=== PATIENT | male | born 1955 | race Caucasian/White ===

== ENCOUNTER 2024-04-14 09:46 | Emergency (ER) | payer OTHER, SELFPAY ==
[2024-04-14 10:22] VITALS: BP 118/80; PULSE 98; RESP 18; TEMP 36.6; O2SAT 96; BMI 26.4
[2024-04-14 10:48] LABS: Basophils # (Auto) 0.1 Thou/mm3 (0.0-0.2); Basophils % (Auto) 0 % (0-2.5); Eosinophils # (Auto) 0.1 Thou/mm3 (0.0-0.5); Eosinophils % (Auto) 0 % (0-10); Hematocrit 44.8 % (41.0-53.0); Hemoglobin 15.5 g/dL (13.5-16.0); Immature Granulocytes % (Auto) 0 % (0-0); Immature Granulocytes Auto 0.05 Thou/mm3 (0.00-0.00); Lymphocytes # (Auto) 2.5 Thou/mm3 (1.0-4.8); Lymphocytes % (Auto) 16 % (10-50); Mean Corpuscular HGB Conc 34.6 g/dl (31.0-37.0); Mean Corpuscular Hemoglobin 32.4 pg (25.0-35.0); Mean Corpuscular Volume 94 fL (80-100); Monocytes # (Auto) 1.2 Thou/mm3 (0.0-0.8); Monocytes % (Auto) 7 % (0-12); Neutrophils # (Auto) 12.5 Thou/mm3 (1.8-7.7); Neutrophils % (Auto) 76 % (37-80); Nucleated Red Blood Cell % 0 /100 WBC (0); Platelet Count 231 Thou/mm3 (140-440); RDW Standard Deviation 44.9 fL (35.1-43.9); Red Blood Count 4.79 Miln/mm3 (4.50-5.90); White Blood Count 16.4 Thou/mm3 (3.8-10.6)
[2024-04-14 11:03] LABS: Alanine Aminotransferase 19 U/L (10-49); Albumin, Serum 5.1 gm/dL (3.4-4.8); Albumin/Globulin Ratio 1.8 (1.2-2.2); Alkaline Phosphatase 97 U/L (46-116); Anion Gap 6 (7-16); Aspartate Amino Transferase 24 U/L (0-34); BUN/Creatinine Ratio 8 Ratio (12-20); Bilirubin,Total 1.1 mg/dL (0.3-1.2); Blood Urea Nitrogen 15 mg/dL (9-23); Calcium 9.8 mg/dL (8.3-10.6); Calcium (Corrected) 9.8 mg/dL (8.5-10.1); Carbon Dioxide 25.8 mMol/L (20.0-31.0); Chloride 107 mMol/L (98-107); Creatinine (Component) 1.8 mg/dL (0.6-1.3); Estimated Creatinine Clearance 38.5 mL/min (>60); Globulin 2.9 gm/dL (2.3-3.5); Glucose 111 mg/dL (74-106); Lipase 29 U/L (12-53); Osmolality,Calculated 279 (275-295); Sodium 139 mMol/L (136-145); eGFR 41 See Note
--- NOTE | 2024-04-14 11:03 | PD.EDRME ---
Rapid Medical Screening Exam RME Arrival date/time: 04/14/24 09:46 This 68-year-old male presents to the emergency department with complaints of right mid flank pain that began 3 days ago associated with nausea. I have greeted and performed a focused initial assessment of this patient. Initial appropriate labs ordered at this time. A comprehensive ED assessment and evaluation of the patient and analysis of all test and completion of medical decision making process will be conducted by additional ED provider. Chief Complaint: Urogenital-Male Time Seen by Provider: 04/14/24 10:15 Vital signs: Vital Signs Temperature 97.8 F 04/14/24 10:22 Pulse Rate 98 04/14/24 10:22 Respiratory Rate 18 04/14/24 10:22 Blood Pressure 118/80 04/14/24 10:22 Pulse Oximetry (%) 96 04/14/24 10:22 Oxygen Delivery Method Room Air 04/14/24 10:22
[2024-04-14 11:40] LABS: Collection Type, Urine Clean Catch; Squamous Epithelial Cell,Urine 0 /hpf (0-5); WBC,Urine 0 /hpf (0-5)
[2024-04-14 12:18] LABS: Amorphous Crystals,Urine Present (Absent); Bilirubin,Urine Negative (Negative); Blood,Urine Negative (Negative); Color,Urine Yellow (Lt Yel-Yel); Glucose, Urine Negative (Negative); Ketones,Urine Negative (Negative); Leukocyte Esterase,Urine Negative (Negative); Nitrite,Urine Negative (Negative); Protein,Urine 2+ (Neg - Trace); RBC,Urine 4 /hpf (0-3)
[2024-04-14 12:19] LABS: Clarity,Urine Turbid (Clear/Hazy)
[2024-04-14 13:15] VITALS: BP 153/89; PULSE 67; RESP 18; TEMP 36.5; O2SAT 98
--- NOTE | 2024-04-14 13:21 | XR_ITS ---
Examination: CT abdomen and pelvis without contrast. Coronal 3-D reconstructions. Sagittal 2-D reconstructions. Date and time of exam:April 14, 2024 1417 hrs. Indications: Right flank pain beginning 3 days ago, history appendectomy CTDI: vol (mGy): 7.54 DLP: (mGycm): 421 Technique: Axial images of the abdomen have been obtained, 3 mm slice thickness Intravenous contrast material has not been administered. Low dose protocols were performed. One or more of the following dose reduction techniques were used; automated exposure control, adjustment of the mA and/or KV according to patient size, use of iterative reconstruction technique. Findings: No focal liver lesions Multiple splenic calcifications Cholelithiasis negative for cholecystitis No pancreatic mass Normal adrenal glands Mild right hydronephrosis secondary to 8 mm proximal right ureteral calculus Heavy abdominal aortic calcification Appendix not visualized No bowel obstruction Mild prostatomegaly No bladder mass Moderate osteopenia Impression: Mild right hydronephrosis secondary to 8 mm proximal right ureteral calculus
--- NOTE | 2024-04-14 13:23 | PD.EDADULT ---
ED General RME/HPI General Chief complaint: Urogenital-Male Stated complaint: right kidney spasms x3 days Time Seen by Provider: 04/14/24 10:15 Arrival date/time: 04/14/24 09:46 CC: Right flank pain HPI abrupt onset 3 days ago progressive increase in severity with pain radiating to the right groin no prior history of similar events denies painful urination or bloody urination. Patient is in obvious discomfort rating his pain on a 9 to a 10 scale. No active vomiting. Patient states he is no longer nauseated after throwing up . 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 RME / HPI RME / HPI narrative: 04/14/24 09:46 This 68-year-old male presents to the emergency department with complaints of right mid flank pain that began 3 days ago associated with nausea. I have greeted and performed a focused initial assessment of this patient. Initial appropriate labs ordered at this time. A comprehensive ED assessment and evaluation of the patient and analysis of all test and completion of medical decision making process will be conducted by additional ED provider. Related Data Previous Rx's ?Medication ?Instructions ?Recorded ketorolac 10 mg tablet 10 mg PO Q8H #7 tabs 04/14/24 ondansetron 4 mg disintegrating 4 mg PO Q8H #10 tabs 04/14/24 tablet Allergies Allergy/AdvReac Type Severity Reaction Status Date / Time No Known Allergies Allergy Verified 04/15/24 11:20 Review of Systems Review of Systems Narrative Review of Systems: GEN: No fever, no chills, no weight loss EYES: No discharge, no visual changes, no pain HEENT: No ear pain, no congestion, no sore throat PULM: No shortness of breath, no cough, no congestion CV: No chest pain, no dyspnea on exertion, no palpitations GI: No nausea, no vomiting, no diarrhea, no pain, no constipation : No frequency, no urgency, no dysuria MUSC/SKEL: No joint pain, +flank pain SKIN: No rash PSYCH: No hallucinations, no depression HEME/LYMPH: No easy bleeding or bruising tendencies NEURO: No weakness, no headache Past Medical History Social History SMOKING STATUS: Current every day smoker ED Exam Narrative Physical exam: [General: Moderate discomfort not in any acute distress Head normocephalic HEENT: Within acceptable limits Neck is supple nontender Chest equal chest rise nontender to palpation Respiratory: Clear to auscultation no wheezes crackles or rubs CV: Rate rhythm is regular no murmurs rubs or clicks Abdomen is soft nontender no masses positive bowel sounds all 4 quadrants Back: Right CVA tenderness no left CVA tenderness, no spinous process tenderness from cervical spine thoracic and lumbar spine Skin: Intact no petechiae rash induration ulceration or crepitus Extremities: Moving all extremity against resistance cap refill less than 2 seconds neurosensory intact Neuro: Awake alert oriented x3 Glascow coma 15 no focal deficits] Course Course Course Narrative: Patient has an 8 mm stone with mild hydro, patient's case discussed with Dr. Broderick states patient be discharged home consider returning tomorrow for nephrostomy tube Quality Measures none Orders Category Date Time Status Saline [Insert IV] NOW Care 04/14/24 13:[address] abdomen pelvis wo con Stat Exams 04/14/24 13:21 Completed CBC Stat Lab 04/14/24 10:37 Completed CMP [Comprehensive Metabolic Panel] Stat Lab 04/14/24 10:37 Completed Lipase Stat Lab 04/14/24 10:37 Completed Urinalysis Stat Lab 04/14/24 11:17 Completed Ketorolac Inj [Toradol Inj] Med 04/14/24 13:21 Discontinued 30 mg IVP X1 ONE Morphine Inj Med 04/14/24 16:01 Discontinued 4 mg IVP X1 ONE Ondansetron Inj [Zofran Inj] Med 04/14/24 13:21 Discontinued 4 mg IV X1 ONE Ondansetron Inj [Zofran Inj] Med 04/14/24 16:01 Discontinued 4 mg IV X1 ONE Vital Signs Vital signs: Vital Signs Temperature 97.8 F 04/14/24 10:22 Pulse Rate 98 04/14/24 10:22 Respiratory Rate 18 04/14/24 10:22 Blood Pressure 118/80 04/14/24 10:22 Pulse Oximetry (%) 96 04/14/24 10:22 Oxygen Delivery Method Room Air 04/14/24 10:22 [facility] Patient data External records reviewed:: [facility] previous records Clinical information provided by:: patient Social determinants that could affect healthcare access:: none Patient has the following chronic illnesses:: History of MIs How is presenting disease/condition affected by chronic disease/condition?: uneffected by Evaluation data The following diagnostics were reviewed and interpreted by me:: lab results and radiology exam(s) Lab and/or radiology exams considered but not ordered:: CBC shows leukocytosis of 16.4 no anemia thrombocytopenia CMP shows a creatinine of 1.8 glucose of 111 no other electrolyte imbalances renal impairment transaminitis or T. bili elevation. UA is turbid with 4+ RBCs no bacteria. Interpretation Summary: None Medications Medications considered but not ordered:: None Medication administrations:: Medication Administration History Discontinued Medications Ketorolac Tromethamine (Ketorolac Inj 30 Mg/Ml Vial) 30 mg IVP X1 ONE Stop: 04/14/24 13:22 Last Admin: 04/14/24 13:45 Dose: 30 mg Documented By: RD Morphine Sulfate (Morphine Sulf Inj 10 Mg/Ml Vial) 4 mg IVP X1 ONE Stop: 04/14/24 16:02 Last Admin: 04/14/24 16:17 Dose: 4 mg Documented By: JESUS Ondansetron HCl (Ondansetron Inj 2 Mg/Ml Inj 2 Ml) 4 mg IV X1 ONE; Protocol Stop: 04/14/24 13:22 Last Admin: 04/14/24 13:45 Dose: 4 mg Documented By: JESUS Ondansetron HCl (Ondansetron Inj 2 Mg/Ml Inj 2 Ml) 4 mg IV X1 ONE; Protocol Stop: 04/14/24 16:02 Last Admin: 04/14/24 16:17 Dose: 4 mg Documented By: JESUS None Consultations Consultation(s) initiated? (list below): No Diagnosis Differential Diagnosis ED Complaint MDM: Urolithiasis hydroureter hydronephrosis Most likely diagnosis given after review of the tests above:: Urolithiasis hydroureter hydronephrosis Admission Indicated Admission indicated?: not indicated Explain why admission is indicated or not indicated:: Needs to return tomorrow for follow-up Admission Request Was there a request for admission?: No Disposition Plan Disposition Plan: Discharge Discharge Attestation Discharge Attestation: The patient and all family members were given an opportunity to ask questions and understood the discharge instructions. Discharge instructions specifically effects, indications for sooner follow up or return to the emergency department, and the expected course of current diagnosis. Patient condition: Stable Medical Decision Making Differential Diagnosis Differential Diagnosis: Urolithiasis hydroureter hydronephrosis Lab Data 04/14/24 10:37 04/14/24 10:37 Labs: Lab Results 04/14/24 04/14/24 Range/Units 10:37 11:17 WBC 16.4 H (3.8-10.6) Thou/mm3 RBC 4.79 (4.50-5.90) Miln/mm3 Hgb 15.5 (13.5-16.0) g/dL Hct 44.8 (41.0-53.0) % MCV 94 (80-100) fL MCH 32.4 (25.0-35.0) pg MCHC 34.6 (31.0-37.0) g/dl RDW Std Deviation 44.9 H (35.1-43.9) fL Plt Count 231 (140-440) Thou/mm3 Neut % (Auto) 76 (37-80) % Lymph % (Auto) 16 (10-50) % [place] % (Auto) 7 (0-12) % Eos % (Auto) 0 (0-10) % Baso % (Auto) 0 (0-2.5) % Neut # (Auto) 12.5 H (1.8-7.7) Thou/mm3 Lymph # (Auto) 2.5 (1.0-4.8) Thou/mm3 [place] # (Auto) 1.2 H (0.0-0.8) Thou/mm3 Eos # (Auto) 0.1 (0.0-0.5) Thou/mm3 Baso # (Auto) 0.1 (0.0-0.2) Thou/mm3 Immature Gran # (Auto) 0.05 H (0.00-0.00) Thou/mm3 Absolute Nucleated RBC 0.00 (0.00-0.00) Thou/mm3 Immature Gran % 0 (0-0) % Nucleated RBC % 0 (0) /100 WBC Sodium 139 (136-145) mMol/L Potassium 4.0 (3.4-5.1) mMol/L Chloride 107 (98-107) mMol/L Carbon Dioxide 25.8 (20.0-31.0) mMol/L Anion Gap 6 L (7-16) BUN 15 (9-23) mg/dL Creatinine 1.8 H (0.6-1.3) mg/dL Estim Creat Clear Calc 38.5 L (>60) mL/min eGFR 41 L (60 - ) See Note BUN/Creatinine Ratio 8 L (12-20) Ratio Glucose 111 H (74-106) mg/dL Calculated Osmolality 279 (275-295) Calcium 9.8 (8.3-10.6) mg/dL Corrected Calcium 9.8 (8.5-10.1) mg/dL Total Bilirubin 1.1 (0.3-1.2) mg/dL AST 24 (0-34) U/L ALT 19 (10-49) U/L Alkaline Phosphatase 97 (46-116) U/L Total Protein 8.0 (5.7-8.2) gm/dL Albumin 5.1 H (3.4-4.8) gm/dL Globulin 2.9 (2.3-3.5) gm/dL Albumin/Globulin Ratio 1.8 (1.2-2.2) Lipase 29 (12-53) U/L Ur Collection Type Clean Catch Urine Color Yellow (Lt Yel-Yel) Urine Clarity Turbid A (Clear/Hazy) Urine pH 6.0 (5.0-7.0) Ur Specific [place] 1.040 H (1.001-1.035) Urine Protein 2+ A (Neg - Trace) Urine Glucose (UA) Negative (Negative) Urine Ketones Negative (Negative) Urine Blood Negative (Negative) Urine Nitrite Negative (Negative) Urine Bilirubin Negative (Negative) Urine Urobilinogen (Auto) 2.0 (0.0-1.0) mg/dL Ur Leukocyte Esterase Negative (Negative) Urine RBC 4 H (0-3) /hpf Urine WBC 0 (0-5) /hpf Ur Squamous Epith Cells 0 (0-5) /hpf Amorphous Crystals Present A (Absent) Urine Bacteria None (None) Discharge Plan Plan Patient Disposition: HOME (Self Care) Patient condition on transfer: Stable Prescriptions/Referrals Prescriptions/Med Rec: New ketorolac 10 mg tablet 10 mg PO Q8H Qty: 7 0RF Rx Instructions: maximum total duration of 5 days from all oral, intranasal, or parenteral formulations ondansetron 4 mg tablet,disintegrating 4 mg PO Q8H Qty: 10 0RF Referrals: Wilma Bone MD [Physician] - In 1 week Chava Meléndez MD [Primary Care Provider] - In 1 week Problem List Clinical Impression: Urolithiasis, Hydronephrosis, Hydroureter Patient/Caregiver Discharge Instructions Education Materials: ED Kidney Stone w/ Colic Print Language: Kosovan Stand Alone Forms: Madison Award Info., Work/School Release, Patient Portal Info Letter MD Attestation MD Attestation The patient was seen by the midlevel practitioner. I, the co-signing physician, was present during the entire ER visit. While I did not physically examine the patient, I was available for consultation as needed.
[2024-04-14] MEDS: KETOROLAC INJ 30 MG/ML VIAL IVP (13:45)
[2024-04-14] MEDS: ONDANSETRON INJ 2 MG/ML INJ 2 ML 4 MG IV ×2 (13:45→16:17)
[2024-04-14 15:36] VITALS: BP 125/79; PULSE 63; RESP 18; TEMP 36.3; O2SAT 98
[2024-04-14] MEDS: MORPHINE SULF INJ 10 MG/ML VIAL 4 MG IVP (16:17)
[2024-04-14 17:28] VITALS: BP 102/67; PULSE 73; RESP 18; TEMP 36.6; O2SAT 97
== END 2024-04-14 17:38 | disposition home or self-care (01) ==
PROVIDERS: Nurse Practitioner Primary Care; Emergency Provider Emergency Medicine; PCP Family Medicine
DX: N13.2 Hydronephrosis with renal and ureteral calculous obstruction (principal)
CPT/HCPCS: 36415; 74176; 80053; 81001; 83690; 85025; 96374; 96375; 96376; 99284; J1885; J2270; J2405

== ENCOUNTER 2024-04-15 11:19 | Emergency (ER) | payer OTHER, SELFPAY ==
[2024-04-15 11:42] VITALS: BP 123/76; PULSE 95; RESP 18; TEMP 36.8; O2SAT 96; BMI 25.2
--- NOTE | 2024-04-15 11:56 | PD.EDADULT ---
ED General RME/HPI General Chief complaint: Urogenital-Male Stated complaint: FOLLOW UP FOR KIDNEY STONE Time Seen by Provider: 04/15/24 11:21 Arrival date/time: 04/15/24 11:19 CC: Right flank pain patient is return today as requested regarding an 8 mm proximal stone in the right ureter. The patient states his brain pain has been essentially relieved with the medication given yesterday patient states he walked a mile did not orange picker the medications prescribed and has a follow-up appointment via teleconference with his [place] primary care doctor in 1 week. Patient is afebrile nontoxic-appearing not in any acute distress. Related Data Previous Rx's ?Medication ?Instructions ?Recorded ketorolac 10 mg tablet 10 mg PO Q8H #7 tabs 04/14/24 ondansetron 4 mg disintegrating 4 mg PO Q8H #10 tabs 04/14/24 tablet Allergies Allergy/AdvReac Type Severity Reaction Status Date / Time No Known Allergies Allergy Verified 04/15/24 11:20 Review of Systems Review of Systems Narrative Review of Systems: GEN: No fever, no chills, no weight loss EYES: No discharge, no visual changes, no pain HEENT: No ear pain, no congestion, no sore throat PULM: No shortness of breath, no cough, no congestion CV: No chest pain, no dyspnea on exertion, no palpitations GI: No nausea, no vomiting, no diarrhea, no pain, no constipation : No frequency, no urgency, no dysuria MUSC/SKEL: No joint pain, no back pain SKIN: No rash PSYCH: No hallucinations, no depression HEME/LYMPH: No easy bleeding or bruising tendencies NEURO: No weakness, no headache Past Medical History Past Medical History CARDIAC: Positive Myocardial Infarction (x2); Negative Congestive Heart Failure RESPIRATORY: Negative Chronic Obstructive Pulmonary Disease (COPD) GENITOURINARY: Negative Renal Disease ENDOCRINE: Negative Diabetes Mellitus Type 1 or Diabetes Mellitus Type 2 Surgical History SURGICAL: Positive Abdominal Surgery Social History SMOKING STATUS: Never smoker ED Exam Narrative Physical exam: [General: Thin but not emaciated not in any acute distress Head normocephalic HEENT: Within acceptable limits Neck is supple nontender Chest equal chest rise nontender to palpation Respiratory: Clear to auscultation no wheezes crackles or rubs CV: Rate rhythm is regular no murmurs rubs or clicks Abdomen is soft nontender no masses positive bowel sounds all 4 quadrants Back: Right CVA tenderness, no left CVA tenderness, no spinous process tenderness from cervical spine thoracic and lumbar spine Skin: Intact no petechiae rash induration ulceration or crepitus Extremities: Moving all extremity against resistance cap refill less than 2 seconds neurosensory intact Neuro: Awake alert oriented x3 Glascow coma 15 no focal deficits] Course Quality Measures none Orders Category Date Time Status CBC Stat Lab 04/15/24 12:11 Completed CMP [Comprehensive Metabolic Panel] Stat Lab 04/15/24 12:11 Completed Vital Signs Vital signs: Vital Signs Temperature 98.3 F 04/15/24 11:42 Pulse Rate 95 04/15/24 11:42 Respiratory Rate 18 04/15/24 11:42 Blood Pressure 123/76 04/15/24 11:42 Pulse Oximetry (%) 96 04/15/24 11:42 Oxygen Delivery Method Room Air 04/15/24 11:[address] [facility] Patient data External records reviewed:: [facility] previous records Clinical information provided by:: patient Social determinants that could affect healthcare access:: none Patient has the following chronic illnesses:: Newly diagnosed urolithiasis 8 mm proximal right ureter with mild hydro nephrosis and hydroureter How is presenting disease/condition affected by chronic disease/condition?: exacerbated by Evaluation data The following diagnostics were reviewed and interpreted by me:: lab results Lab and/or radiology exams considered but not ordered:: CBC shows a leukocytosis of 14.9 this is a decrease from yesterday, creatinine is unchanged at 1.8 all other labs are unremarkable Interpretation Summary: This patient can be discharged home with a follow-up with the [place] regarding his urolithiasis with hydroureter and hydronephrosis. Patient advised if there is worsening of symptoms he can return the emergency room medially for further evaluation. Medications Medications considered but not ordered:: None Medication administrations:: None Consultations Consultation(s) initiated? (list below): No Diagnosis Differential Diagnosis ED Complaint MDM: Urolithiasis hydroureter hydronephrosis Most likely diagnosis given after review of the tests above:: Urolithiasis Admission Indicated Admission indicated?: not indicated Explain why admission is indicated or not indicated:: Stable for close outpatient follow-up patient states he has not appointment with the [place], Admission Request Was there a request for admission?: No Disposition Plan Disposition Plan: Discharge Discharge Attestation Discharge Attestation: The patient and all family members were given an opportunity to ask questions and understood the discharge instructions. Discharge instructions specifically effects, indications for sooner follow up or return to the emergency department, and the expected course of current diagnosis. Patient condition: Stable Medical Decision Making Differential Diagnosis Differential Diagnosis: Urolithiasis hydroureter hydronephrosis Lab Data 04/15/24 12:11 04/15/24 12:11 Labs: Lab Results 04/15/24 Range/Units 12:11 WBC 14.9 H (3.8-10.6) Thou/mm3 RBC 4.56 (4.50-5.90) Miln/mm3 Hgb 14.7 (13.5-16.0) g/dL Hct 43.3 (41.0-53.0) % MCV 95 (80-100) fL MCH 32.2 (25.0-35.0) pg MCHC 33.9 (31.0-37.0) g/dl RDW Std Deviation 45.9 H (35.1-43.9) fL Plt Count 217 (140-440) Thou/mm3 Neut % (Auto) 74 (37-80) % Lymph % (Auto) 16 (10-50) % [place] % (Auto) 8 (0-12) % Eos % (Auto) 1 (0-10) % Baso % (Auto) 1 (0-2.5) % Neut # (Auto) 11.0 H (1.8-7.7) Thou/mm3 Lymph # (Auto) 2.4 (1.0-4.8) Thou/mm3 [place] # (Auto) 1.2 H (0.0-0.8) Thou/mm3 Eos # (Auto) 0.2 (0.0-0.5) Thou/mm3 Baso # (Auto) 0.1 (0.0-0.2) Thou/mm3 Immature Gran # (Auto) 0.04 H (0.00-0.00) Thou/mm3 Absolute Nucleated RBC 0.00 (0.00-0.00) Thou/mm3 Immature Gran % 0 (0-0) % Nucleated RBC % 0 (0) /100 WBC Sodium 140 (136-145) mMol/L Potassium 4.2 (3.4-5.1) mMol/L Chloride 106 (98-107) mMol/L Carbon Dioxide 28.1 (20.0-31.0) mMol/L Anion Gap 6 L (7-16) BUN 20 (9-23) mg/dL Creatinine 1.8 H (0.6-1.3) mg/dL Estim Creat Clear Calc 38.5 L (>60) mL/min eGFR 41 L (60 - ) See Note BUN/Creatinine Ratio 11 L (12-20) Ratio Glucose 104 (74-106) mg/dL Calculated Osmolality 282 (275-295) Calcium 9.7 (8.3-10.6) mg/dL Corrected Calcium 9.7 (8.5-10.1) mg/dL Total Bilirubin 1.2 (0.3-1.2) mg/dL AST 22 (0-34) U/L ALT 18 (10-49) U/L Alkaline Phosphatase 91 (46-116) U/L Total Protein 7.8 (5.7-8.2) gm/dL Albumin 4.8 (3.4-4.8) gm/dL Globulin 3.0 (2.3-3.5) gm/dL Albumin/Globulin Ratio 1.6 (1.2-2.2) Discharge Plan Plan Patient Disposition: HOME (Self Care) Patient condition on transfer: Stable Prescriptions/Referrals Prescriptions/Med Rec: No Action ketorolac 10 mg tablet 10 mg PO Q8H Qty: 7 0RF Rx Instructions: maximum total duration of 5 days from all oral, intranasal, or parenteral formulations ondansetron 4 mg tablet,disintegrating 4 mg PO Q8H Qty: 10 0RF Referrals: Chava Meléndez MD [Primary Care Provider] - In 1 week Problem List Clinical Impression: Urolithiasis, Hydronephrosis, Hydroureter Patient/Caregiver Discharge Instructions Other Activity Instructions:: Take the medications that were prescribed yesterday if there is a worsening of symptoms in spite of the medications return the emergency room immediately for further evaluation. Education Materials: ED Kidney Stone Undescended No ... Print Language: Frisian Stand Alone Forms: [employer] Award Info., Work/School Release, Patient Portal Info Letter Attestation Attestation The patient was seen by the midlevel practitioner. I, the co-signing physician, was present during the entire ER visit. While I did not physically examine the patient, I was available for consultation as needed.
[2024-04-15 12:46] LABS: Basophils # (Auto) 0.1 Thou/mm3 (0.0-0.2); Basophils % (Auto) 1 % (0-2.5); Eosinophils # (Auto) 0.2 Thou/mm3 (0.0-0.5); Eosinophils % (Auto) 1 % (0-10); Hematocrit 43.3 % (41.0-53.0); Hemoglobin 14.7 g/dL (13.5-16.0); Immature Granulocytes % (Auto) 0 % (0-0); Immature Granulocytes Auto 0.04 Thou/mm3 (0.00-0.00); Lymphocytes # (Auto) 2.4 Thou/mm3 (1.0-4.8); Lymphocytes % (Auto) 16 % (10-50); Mean Corpuscular HGB Conc 33.9 g/dl (31.0-37.0); Mean Corpuscular Hemoglobin 32.2 pg (25.0-35.0); Mean Corpuscular Volume 95 fL (80-100); Monocytes # (Auto) 1.2 Thou/mm3 (0.0-0.8); Monocytes % (Auto) 8 % (0-12); Neutrophils % (Auto) 74 % (37-80); Nucleated Red Blood Cell % 0 /100 WBC (0); Platelet Count 217 Thou/mm3 (140-440); RDW Standard Deviation 45.9 fL (35.1-43.9); Red Blood Count 4.56 Miln/mm3 (4.50-5.90); White Blood Count 14.9 Thou/mm3 (3.8-10.6)
[2024-04-15 13:07] LABS: Alanine Aminotransferase 18 U/L (10-49); Albumin, Serum 4.8 gm/dL (3.4-4.8); Albumin/Globulin Ratio 1.6 (1.2-2.2); Alkaline Phosphatase 91 U/L (46-116); Anion Gap 6 (7-16); Aspartate Amino Transferase 22 U/L (0-34); BUN/Creatinine Ratio 11 Ratio (12-20); Bilirubin,Total 1.2 mg/dL (0.3-1.2); Blood Urea Nitrogen 20 mg/dL (9-23); Calcium 9.7 mg/dL (8.3-10.6); Calcium (Corrected) 9.7 mg/dL (8.5-10.1); Carbon Dioxide 28.1 mMol/L (20.0-31.0); Chloride 106 mMol/L (98-107); Creatinine (Component) 1.8 mg/dL (0.6-1.3); Estimated Creatinine Clearance 38.5 mL/min (>60); Glucose 104 mg/dL (74-106); Osmolality,Calculated 282 (275-295); Potassium 4.2 mMol/L (3.4-5.1); Sodium 140 mMol/L (136-145); Total Protein 7.8 gm/dL (5.7-8.2); eGFR 41 See Note
== END 2024-04-15 14:06 | disposition home or self-care (01) ==
PROVIDERS: Registered Nurse General Practice; Emergency Provider Emergency Medicine; PCP Family Medicine
DX: N13.2 Hydronephrosis with renal and ureteral calculous obstruction (principal)
CPT/HCPCS: 36415; 80053; 85025; 99283

== ENCOUNTER → 2024-06-03 | Outpatient (BNVA) | payer OTHER, SELFPAY | END | disposition home or self-care (01) | PROVIDERS: PCP Family Medicine; Referring Provider Family Medicine; Visit Provider Urology | DX: N40.1 Benign prostatic hyperplasia with lower urinary tract symptoms (principal); N13.8 Other obstructive and reflux uropathy; N13.2 Hydronephrosis with renal and ureteral calculous obstruction; N18.30 Chronic kidney disease, stage 3 unspecified; I25.10 Atherosclerotic heart disease of native coronary artery without angina pectoris; I25.2 Old myocardial infarction | CPT/HCPCS: 81003; 99212; G0463 ==

== ENCOUNTER → 2024-06-03 | Outpatient (CLI) | payer OTHER, SELFPAY ==
[2024-06-03 12:40] LABS: Prostate Specific Antigen 2.98 ng/mL (0-4.00)
== END | disposition home or self-care (01) ==
LOC: COPL 11:22
PROVIDERS: PCP Family Medicine; Referring Provider Family Medicine; Visit Provider Family Medicine
DX: N40.1 Benign prostatic hyperplasia with lower urinary tract symptoms (principal)
CPT/HCPCS: 36415; 84153

== ENCOUNTER 2024-06-26 06:15 | Day surgery (SDC) | payer OTHER, MEDICARE, SELFPAY ==
[2024-06-25 11:56] VITALS: BMI 26.3
--- NOTE | 2024-06-25 12:15 | EKG_ITS ---
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
[2024-06-25 14:01] LABS: Alanine Aminotransferase 16 U/L (10-49); Albumin, Serum 4.8 gm/dL (3.4-4.8); Albumin/Globulin Ratio 1.8 (1.2-2.2); Alkaline Phosphatase 82 U/L (46-116); Anion Gap 5 (7-16); Aspartate Amino Transferase 19 U/L (0-34); BUN/Creatinine Ratio 9 Ratio (12-20); Bilirubin,Total 0.6 mg/dL (0.3-1.2); Blood Urea Nitrogen 11 mg/dL (9-23); Calcium 9.6 mg/dL (8.3-10.6); Calcium (Corrected) 9.6 mg/dL (8.5-10.1); Carbon Dioxide 28.1 mMol/L (20.0-31.0); Chloride 104 mMol/L (98-107); Creatinine (Component) 1.2 mg/dL (0.6-1.3); Estimated Creatinine Clearance 57.8 mL/min (>60); Globulin 2.6 gm/dL (2.3-3.5); Glucose 112 mg/dL (74-106); Osmolality,Calculated 274 (275-295); Potassium 4.6 mMol/L (3.4-5.1); Sodium 137 mMol/L (136-145); Total Protein 7.4 gm/dL (5.7-8.2); eGFR > 60 See Note
--- NOTE | 2024-06-25 14:44 | SUR.PREOP ---
Pt has history of 2 coronary stents, last one 4 yrs ago, pt stated he moved to [place] 2 yrs ago and he was seeing cardiology at [facility] in [facility] and has not been able to get an appointment to see cardiology in [place]. Pt denies any cardiac symptoms. Information shared with Dr Aguirre.
[2024-06-26] VITALS (8 sets, daily range): BP systolic 111–152; BP diastolic 73–90; PULSE 63–87; RESP 16–20; TEMP 36.2–36.7; O2SAT 95–99; BMI 25.4
--- NOTE | 2024-06-26 06:55 | XR_ITS ---
Examination: Right retrograde pyelogram with without KUB Fluoroscopy AP abdomen 2 views Exam date and time: June 26, 2024 1048 hours INDICATIONS: CT stone study April 14, 2024 mild right hydronephrosis 8 mm proximal right ureteral calculus, ureteral stone manipulation stent placement today TECHNIQUE AND FINDINGS: 2 spot abdomen films obtained Opacification of dilated right renal collecting system with 8 mm proximal right ureteral calculus Right ureteral stent satisfactory position Fluoroscopy 44.5 seconds radiation dose 8.21 milligray IMPRESSION: Right retrograde pyelogram as above
[2024-06-26] MEDS: VANCOMYCIN in NS 1 GM/200 ML BAG IV (07:16)
[2024-06-26] MEDS: RINGERS LACTATED 1000 ML 1,000 ML 20 ML IV (07:17)
[2024-06-26] MEDS: ALBUTEROL RT 2.5 MG/3 ML NEBU INH (07:44)
--- NOTE | 2024-06-26 09:59 | SUR.PHASEI ---
[id number] Patient arrived to recovery in [facility], awake and alert, talking with staff, breathing unlabored, vital signs stable, denies pain, urinary catheter 16F in place with leg secure; draining to gravity; with light pink fluid in martel bag, lung sounds clear upon auscultation, bilateral radial pulses present when palpated, report received from Cortez MURRIETA and Dr. Morales
--- NOTE | 2024-06-26 10:13 | SUR.PHASEI ---
Dr. Bone at bedside taking with patient, verbal order read-back received to discontinue catheter, call in to patients pharmacy Tramadol 50mg every 8hr PRN for pain, quantity 20, no refills, will can in medication to pharmacy that patients prefers, can discontinue catheter per MD order
--- NOTE | 2024-06-26 10:26 | SUR.PHASEII ---
urinary catheter discontinued per MD order, patient tolerated well
--- NOTE | 2024-06-26 10:40 | PD.SUROPNT ---
Date of Procedure 06/26/24 Pre Op Diagnosis Right hydronephrosis, 8 mm stone proximal ureter with obstruction, BPH with urinary obstruction and LUTS Post Op Diagnosis Same Procedure Cystoscopic examination right retrograde pyelogram right ureteroscopy placement of safety wire stone manipulation and placement of right ureteral stent double-J 26 cm long 6 Citizen Of [place] in a retrograde fashion under fluoroscopic examination Findings Right hydronephrosis, BPH with obstructive bilateral lobes, stone 8 mm proximal ureter, ureter not accommodating ureteroscope and the very tight ureter Procedure Description Indication for procedure this is a 68-year-old gentleman this patient has flank pain right side he was found to have a 8 mm stone with hydronephrosis right side. He was recommended above procedure procedure and complications were discussed with patient in great detail informed consent is obtained Patient was brought to the operating room in a satisfactory condition after appropriate premedication he was appropriately identified by the operating room staff and surgeon site scope and indications of the procedure were confirmed with the patient. Next general anesthesia was given uneventfully patient was positioned in a dorsal lithotomy position parts were prepped and draped in the usual sterile fashion 2% lidocaine was instilled into the urethra 21 cystoscope was introduced into the bladder per urethra at this time patient received perioperative antibiotics and 20 mg of Lasix was administered IV for diuresis as well as for prevention of pyelocalyceal infectious complication. Examination of bladder in all the quadrant was carried out he had bilateral prostatic hypertrophy inside of the bladder there was no tumor stone or diverticula there was a urine coming out of left ureteral orifice no urine was coming from the right side. Next I passed the open-ended Pollick catheter into the right ureteral orifice. Through the open-ended Pollick catheter I passed a safety wire and the safety wire will not bypassed the stone in the proximal ureter I was able to manipulate the stone and I was able to bypass the safety wire into the upper pole calyx right side. At this time right collecting system decompressed with a lot of urine coming with a great pressure from the right side. Next open-ended Pollick catheter was removed I took semirigid ureteroscope and passed through the right ureteral orifice ureter was very tight it was not accommodating the scope. At this time I decided not to push the scope and elected to pass a ureteral stent 6 Citizen [place] 26 cm long in a retrograde fashion under fluoroscopic examination proximal end was in renal pelvis distal in the bladder. Next #16 Diego catheter was inserted balloon was inflated with 10 cc of water Patient disposition he is scheduled for second stage on 07/17/2024 Anesthesia GETA Pathology / specimen None Estimated Blood Loss 0.5 Disposition PACU Surgeon Wilma Bone MD Surgical Staff Operation Date: 06/26/24 08:30 Case Staff Anesthesiologist: Shabbir Morales
--- NOTE | 2024-06-26 10:54 | SUR.PHASEII ---
1054 Patient meets discharge criteria from recovery, awake and alert, breathing unlabored, vital signs stable, denies pain, drinking fluids; denies nausea, patient voided in urinal prior to discharge, patient able to dress himself into his clothing, discharge instructions given to patient and patients friend, friend signed discharge instructions. Patient given all his belongings prior to discharge, transported via wheelchair and left in a private vehicle.
== END 2024-06-26 10:54 | disposition home or self-care (01) ==
PROVIDERS: Anesthesiology; PCP Family Medicine; Referring Provider Urology; Visit Provider Urology
PROC: 0TJB8ZZ Inspection of Bladder, Via Natural or Artificial Opening Endoscopic (ICD-10-PCS; CPT 52000; principal; 2024-06-26 08:30)
DX: N13.2 Hydronephrosis with renal and ureteral calculous obstruction (principal); N13.8 Other obstructive and reflux uropathy; N40.1 Benign prostatic hyperplasia with lower urinary tract symptoms
CPT/HCPCS: 52332; 36415; 76000; 80053; 93005; A4217; A4649; C1769; C1894; C2617; J0461; J1100; J1580; J1940; J2250; J2371; J2405; J2704; J3010; J3370; J3490; J7120; A9270

== ENCOUNTER 2024-07-24 08:05 | Day surgery (SDC) | payer OTHER, MEDICARE, SELFPAY ==
[2024-07-23 09:42] VITALS: BMI 25.8
[2024-07-23 11:23] LABS: Alanine Aminotransferase 27 U/L (10-49); Albumin, Serum 4.9 gm/dL (3.4-4.8); Albumin/Globulin Ratio 1.6 (1.2-2.2); Anion Gap 8 (7-16); Aspartate Amino Transferase 36 U/L (0-34); BUN/Creatinine Ratio 7 Ratio (12-20); Bilirubin,Total 0.7 mg/dL (0.3-1.2); Blood Urea Nitrogen 8 mg/dL (9-23); Calcium 9.4 mg/dL (8.3-10.6); Calcium (Corrected) 9.4 mg/dL (8.5-10.1); Chloride 105 mMol/L (98-107); Creatinine (Component) 1.2 mg/dL (0.6-1.3); Estimated Creatinine Clearance 57.8 mL/min (>60); Glucose 108 mg/dL (74-106); Osmolality,Calculated 276 (275-295); Potassium 4.5 mMol/L (3.4-5.1); Sodium 139 mMol/L (136-145); Total Protein 7.9 gm/dL (5.7-8.2); eGFR > 60 See Note
[2024-07-23 11:33] LABS: Alkaline Phosphatase 89 U/L (46-116)
--- NOTE | 2024-07-23 14:04 | SUR.PREOP ---
Pt cardiac history reviewed with Dr Aguirre.
[2024-07-24] VITALS (11 sets, daily range): BP systolic 109–133; BP diastolic 66–85; PULSE 55–68; RESP 12–20; TEMP 36.1–37.1; O2SAT 97–100; BMI 24.7
--- NOTE | 2024-07-24 07:12 | XR_ITS ---
Examination: Right retrograde pyelogram with without KUB Fluoroscopy 3-D AP spot fluoroscopic films of the abdomen Exam date and time: 08/21/2024 1445 hrs. Indications: History right flank pain beginning February 2024 right hydronephrosis 8mm proximal right ureteral calculus on CT examination April 14, 2024, ureteral stent replacement Technique And Findings: 3 spot fluoroscopic films of the abdomen Right ureteral stent satisfactory position Fluoroscopy 42 seconds radiation dose 10.08 milligray Impression: Retrograde pyelogram as above
[2024-07-24] MEDS: VANCOMYCIN/NS 1 GM IVPB 200 ML IV (08:42)
[2024-07-24] MEDS: RINGERS LACTATED 1000 ML 1,000 ML 20 ML IV (08:48)
--- NOTE | 2024-07-24 13:57 | SUR.PHASEI ---
1357: Pt. AAOx4, vitals stable, breathing unlabored, no complaint of pain or nausea, no dressing in place, martel catheter in place draining hematuria, report received from MD Aguirre and Cortez MURRIETA.
--- NOTE | 2024-07-24 14:12 | ESOP_ITS ---
Date of Procedure 07/24/24 Pre Op Diagnosis Impacted stone right proximal ureter 9 mm with right hydronephrosis status post placement of right ureteral stent Post Op Diagnosis Same Procedure Cystoscopic examination right retrograde pyelogram placement of safety wire removal of right ureteral stent right semirigid ureteroscopy laser stone fragmentation stone basketing placement of right ureteral stent in a retrograde fashion under fluoroscopic examination Indication for procedure this is 68-year-old gentleman this patient has impacted stone right proximal ureter had a placement of stent he was recommended above procedure procedure and complications were discussed with the patient in great detail informed consent is obtained Patient was brought to the operating room in a satisfactory condition after appropriate premedication he was appropriately identified by surgeon and operating room staff site scope and indications of the procedure were reconfirmed with the patient General anesthesia was given uneventfully patient was positioned in dorsolithotomy position parts were prepped and draped in the usual sterile fashion 2% lidocaine was instilled into the urethra 21 cystoscope was introduced into the bladder per urethra examination of urethra revealed no stricture prostatic urethra revealed bilobar prostatic hypertrophy inside of the bladder in all the quadrant was carried out there was no tumor stone or diverticula identified. Stent was coming out of right ureteral orifice I passed a open- ended Pollick catheter into right ureteral orifice through the open-ended Pollick catheter I was able to place a safety wire into the upper pole calyx. Next I removed the right ureteral stent. Next a semirigid ureteroscope was passed into the ureter stone was impacted and embedded into the tissue in the proximal ureter. It was at ureteropelvic junction. It was a large stone with multiple spicules impacted and embedded into the ureteral wall next the 240 ?m laser fiber I was able to break the stone into multiple small pieces. Retrograde pyelogram was performed there was no injury to the collecting system or ureter. Stone was basketed with the stone basketing x 5. Instrument was withdrawn gently over the safety wire I was able to place 26 cm long 6 [place] double-J stent stent proximal curled in the renal pelvis distal in the bladder this was done under fluoroscopic examination. Next the instrument was very with drawn gently #16 Diego catheter was inserted patient after having tolerated the procedure well was sent to recovery room in a satisfactory condition to be discharged home to be followed in urology office Findings Impacted and embedded stone into the tissue in the proximal ureter at the ureteropelvic junction 9 mm with multiple spicules Anesthesia GETA Pathology / specimen None (Stone) Estimated Blood Loss 1 Condition Stable Disposition PACU Surgeon Wilma Bone MD Surgical Staff Operation Date: 07/24/24 10:30 Case Staff Anesthesiologist: Dixon Aguirre
[2024-07-24] MEDS: fentaNYL CIT INJ 50 mCg/ML AMP 2ML IV ×2 (14:27→15:11)
--- NOTE | 2024-07-24 15:30 | SUR.PHASEII ---
1530: Pt. AAOx4, vitals stable, breathing unlabored, no complaint of pain or nausea, no dressing in place, removed martel catheter, pt. tolerated removal well, pt. tolerated sips of water well, pt. ambulated to wheelchair with steady gait and no assist, no complications. Gave discharge instructions to the pt. and his ride, both verbalized understanding and had no further questions. Pt. left with all personal belongings.
== END 2024-07-24 15:30 | disposition home or self-care (01) ==
PROVIDERS: Anesthesiology; PCP Family Medicine; Referring Provider Urology; Visit Provider Urology
PROC: 0TJB8ZZ Inspection of Bladder, Via Natural or Artificial Opening Endoscopic (ICD-10-PCS; CPT 52000; principal; 2024-07-24 10:15)
DX: N13.2 Hydronephrosis with renal and ureteral calculous obstruction (principal)
CPT/HCPCS: 52356; 36415; 74420; 80053; A4217; A4649; C1769; C1894; C2617; J1100; J1580; J1940; J2405; J2704; J3010; J3370; J3490; J7120; J1805

== ENCOUNTER → 2024-08-30 | Outpatient (BNVA) | payer OTHER, MEDICARE, SELFPAY | END | disposition home or self-care (01) | PROVIDERS: PCP Family Medicine; Referring Provider Family Medicine; Visit Provider Urology | DX: N32.89 Other specified disorders of bladder (principal); Z96.0 Presence of urogenital implants; N40.1 Benign prostatic hyperplasia with lower urinary tract symptoms; N13.8 Other obstructive and reflux uropathy; I10 Essential (primary) hypertension; E78.00 Pure hypercholesterolemia, unspecified; I25.10 Atherosclerotic heart disease of native coronary artery without angina pectoris; I25.2 Old myocardial infarction; F17.210 Nicotine dependence, cigarettes, uncomplicated | CPT/HCPCS: 52310; 96372; A4217; A4649; C1894; J1580; A9270 ==

== ENCOUNTER 2024-09-24 09:25 | Emergency (ER) | payer MEDICARE, OTHER, SELFPAY ==
[2024-09-24 09:26] VITALS: BMI 24.9
[2024-09-24 09:33] VITALS: BP 140/95; PULSE 91; RESP 19; TEMP 36.7; O2SAT 96
--- NOTE | 2024-09-24 09:39 | XR_ITS ---
Examination: Ribs, left, with PA chest, 5 views Technique: Chest PA, RIBS AP, RPO, LPO, AP coned lower ribs 5 views Exam date and time: September 24, 2024 0946 hours INDICATIONS: Patient fell 2 days ago with injury to the left chest, left rib pain Findings: Normal heart size No pneumothorax Prominent osteopenia acute fracture left ninth rib anterolaterally without significant displacement IMPRESSION: No pneumothorax Acute fracture left ninth rib without significant displacement
[2024-09-24] MEDS: traMADol HCL 50 MG TABLET PO (10:26)
--- NOTE | 2024-09-24 11:38 | PD.EDFALL ---
ED Fall Injury RME/HPI General Chief Complaint: Fall Stated Complaint: LEFT SIDE BACK PAIN S/P FALL X2 DAYS AGO Time Seen by Provider: 09/24/24 09:39 Arrival date/time: 09/24/24 09:25 69-year-old male presents to the emergency department for complaints of left-sided rib pain after a trip and fall 2 days ago patient reports no head or neck injury reports pain is over the left side of the ribs. There are no other associated symptoms or aggravating factors no other modifying factors, patient denies taking medication before coming to ER today Limitations: no limitations Related Data Home Medications ?Medication ?Instructions ?Recorded ?Confirmed aspirin 81 mg tablet,delayed 81 mg PO QDAY 06/03/24 08/30/24 release carvedilol 6.25 mg tablet 6.25 mg PO BID 06/03/24 08/30/24 omeprazole 40 mg capsule,delayed 40 mg PO BID 06/03/24 08/30/24 release rosuvastatin 40 mg tablet 40 mg PO QDAY 06/03/24 08/30/24 ezetimibe 10 mg tablet 10 mg PO QDAY 06/25/24 08/30/24 oxybutynin chloride 10 mg 10 mg PO QDAY 07/23/24 08/30/24 tablet,extended release 24 hr Previous Rx's ?Medication ?Instructions ?Recorded tamsulosin 0.4 mg capsule (Flomax) 0.4 mg PO Q24H #90 caps 06/26/24 tramadol 50 mg tablet 50 mg PO Q8H PRN pain #14 tabs 06/26/24 hydrocodone 5 mg-acetaminophen 325 1 tab PO BID PRN pain #10 tabs 09/24/24 mg tablet ibuprofen 600 mg tablet 600 mg PO Q6H #30 tabs 09/24/24 Allergies Allergy/AdvReac Type Severity Reaction Status Date / Time No Known Allergies Allergy Verified 09/24/24 09:30 Review of Systems Review of Systems Systems Reviewed: All systems reviewed, normal except as documented Constitutional Constitutional: Reports system reviewed and no additional complaints, except as documented, Denies fever(s) and Denies headache(s) Eyes Eyes: Reports system reviewed and no additional complaints, except as documented and Denies blurry vision ENT Ears, Nose, Mouth, and Throat: Reports system reviewed and no additional complaints, except as documented, Denies headache(s), Denies nasal congestion and Denies nasal discharge Cardiovascular Cardiovascular: Reports system reviewed and no additional complaints, except as documented, Denies chest pain and Denies dyspnea Respiratory Respiratory: Reports system reviewed and no additional complaints, except as documented, Denies chest congestion, Denies cough and Denies dyspnea Gastrointestinal Gastrointestinal: Reports system reviewed and no additional complaints, except as documented and Denies abdominal pain Musculoskeletal Musculoskeletal: Reports system reviewed and no additional complaints, except as documented and Reports back pain (Left side rib pain ) Integumentary/Breasts Skin/Breast: Reports system reviewed and no additional complaints, except as documented and Denies rash Neurologic Neurologic: Reports system reviewed and no additional complaints, except as documented, Reports as per HPI and Denies headache(s) Past Medical History Past Medical History NEUROLOGIC: Negative Neurological Disorders or Seizures CARDIAC: Positive Cardiac Disorders, Myocardial Infarction (x2), Coronary Artery Disease, Hypercholesterolemia and Hypertension; Negative Congestive Heart Failure RESPIRATORY: Negative Chronic Obstructive Pulmonary Disease (COPD) GASTROINTESTINAL: Negative Gastrointestinal Disorders GENITOURINARY: Positive Genitourinary Disorders, Kidney Stones and Benign Prostatic Hyperplasia; Negative Renal Disease MUSCULOSKELETAL: Positive Musculoskeletal Disorders and Fractures (right leg at 15 yrs old) ENDOCRINE: Negative Endocrine Disorders, Diabetes Mellitus Type 1 or Diabetes Mellitus Type 2 HEMATOLOGIC: Negative Blood Disorders OTHER HISTORY: Positive Hospitalization ([place]), Chicken Pox, Measles, Mumps and Cancer; Negative Autoimmune Disease, Shingles, Blood Transfusions, Blood Transfusion Reaction or Anesthesia Reactions Family History FAMILY HISTORY: Positive Family Cancer and Family Surgery; Negative Family Psychiatric Problems, Family Respiratory Disorders, Family Cardiac Disorders, Family Gastrointestinal Problems or Family Anesthesia Reaction Surgical History SURGICAL: Positive Coronary Stent (x2,), Cardiac Catheterization, Tonsillectomy and Abdominal Surgery Social History SMOKING STATUS: Heavy (> 1 pack/day) ED Exam General Limitations: Present no limitations General appearance: Present alert and in no apparent distress Head Head exam: Present atraumatic, normocephalic and normal inspection Eye Eye exam: Present normal appearance, PERRL and EOMI ENT ENT exam: Present normal exam, normal oropharynx and mucous membranes moist Neck Neck exam: Present normal inspection, full ROM and trachea midline Chest Chest inspection: Present normal inspection and symmetric chest wall rise Respiratory Respiratory exam: Present normal lung sounds bilaterally Cardiovascular Cardiovascular exam: Present regular rate, normal rhythm and normal heart sounds Abdominal Exam Abdominal exam: Present soft and normal bowel sounds; Absent distention, tenderness, guarding or rebound Extremities Exam Extremities exam: Present normal inspection and full ROM Back Exam Back exam: Present normal inspection and full ROM Back 1 view image:  1. Left-sided rib Neurological Exam Neurological exam: Present alert, oriented X3 and CN II-XII intact Psychiatric Psychiatric exam: Present normal affect and normal mood Skin Skin exam: Present warm, dry, intact and normal color Course Quality Measures none Orders Category Date Time Status XR ribs LT min 3V w CXR1V Stat Exams 09/24/24 09:39 Completed traMADol HCL [Ultram] Med 09/24/24 09:39 Discontinued 50 mg PO X1 ONE Vital Signs Vital signs: Vital Signs Temperature 98.1 F 09/24/24 09:33 Pulse Rate 91 09/24/24 09:33 Respiratory Rate 19 09/24/24 09:33 Blood Pressure 140/95 H 09/24/24 09:33 Pulse Oximetry (%) 96 09/24/24 09:33 Oxygen Delivery Method Room Air 09/24/24 09:33 O2 saturation 96% room air within normal limits Fall MDM Narrative MDM Narrative:: 69-year-old male presents to the emergency department for complaints of left-sided rib pain after a trip and fall 2 days ago patient reports no head or neck injury reports pain is over the left side of the ribs. There are no other associated symptoms or aggravating factors no other modifying factors, patient denies taking medication before coming to ER today Based on symptomatology I suspect patient has rib fracture Imaging obtained consistent with rib fracture Patient given pain medication here discharged home with pain meds Patient discharged home in no distress to follow-up with primary care doctor in the next 24 to 48 hours and for any worsening symptoms to return to the ER immediately Patient data External records reviewed:: [facility] previous records Clinical information provided by:: patient Social determinants that could affect healthcare access:: none Patient has the following chronic illnesses:: See history How is presenting disease/condition affected by chronic disease/condition?: uneffected by Evaluation data The following diagnostics were reviewed and interpreted by me:: radiology exam(s) Lab and/or radiology exams considered but not ordered:: Radiology obtain Interpretation Summary: Reviewed by me Medications / Prescriptions Medications or Prescriptions considered but not ordered:: Given Medication administrations:: Medication Administration History Discontinued Medications Tramadol HCl (Tramadol Hcl 50 Mg Tablet) 50 mg PO X1 ONE Stop: 09/24/24 09:40 Last Admin: 09/24/24 10:26 Dose: 50 mg Documented By: JEMIMA Given Consultations Consultation(s) initiated? (list below): No Diagnosis Fall Differential Diagnosis: other (Rib fracture, rib contusion, back pain) Most likely diagnosis given after review of the tests above:: Fracture rib Admission Indicated Admission indicated?: not indicated Admission Request Was there a request for admission?: No Disposition Plan Disposition Plan: Discharge Discharge Attestation Discharge Attestation: The patient and all family members were given an opportunity to ask questions and understood the discharge instructions. Discharge instructions specifically effects, indications for sooner follow up or return to the emergency department, and the expected course of current diagnosis. Patient condition: Stable Discharge Plan Plan Patient Disposition: HOME (Self Care) Disposition Comment: Stable Prescriptions/Referrals Prescriptions/Med Rec: New hydrocodone-acetaminophen 5-325 mg tablet 1 tab PO BID MDD 10 PRN (Reason: pain) Qty: 10 0RF ibuprofen 600 mg tablet 600 mg PO Q6H Qty: 30 0RF No Action carvedilol 6.25 mg tablet 6.25 mg PO BID Rx Instructions: must administer with a meal/food omeprazole 40 mg capsule,delayed release(DR/EC) 40 mg PO BID rosuvastatin 40 mg tablet 40 mg PO QDAY aspirin 81 mg tablet,delayed release (DR/EC) 81 mg PO QDAY oxybutynin chloride 10 mg tablet extended release 24hr 10 mg PO QDAY ezetimibe 10 mg tablet 10 mg PO QDAY tamsulosin [Flomax] 0.4 mg capsule 0.4 mg PO Q24H Qty: 90 0RF Rx Instructions: administer 30 minutes after same meal each day; swallow whole with liquid; do not crush/chew/dissolve/open tramadol 50 mg tablet 50 mg PO Q8H PRN (Reason: pain) Qty: 14 0RF Referrals: No Primary/Family,Physician [Primary Care Provider] - In 1 week Problem List Clinical Impression: Fracture of rib of left side Patient/Caregiver Discharge Instructions Education Materials: ED Rib Fracture Additional Instructions: Please follow up with your primary care doctor in the next 24-48hrs for any worsening symptoms return here immediately Print Language: Divehi Stand Alone Forms: [place] Award Info., Patient Portal Info Letter PA/STREAMING MEDIA SPECIALIST Supervising Physician TONI/YUMI Supervising Physician: Dr patel
== END 2024-09-24 11:50 | disposition home or self-care (01) ==
PROVIDERS: Emergency Provider Emergency Medicine
DX: S22.32XA Fracture of one rib, left side, initial encounter for closed fracture (principal); W01.0XXA Fall on same level from slipping, tripping and stumbling without subsequent striking against object, initial encounter
CPT/HCPCS: 71101; 99283; A9270

== ENCOUNTER → 2024-09-30 | Outpatient (CLI) | payer MEDICARE, SELFPAY ==
--- NOTE | 2024-09-30 14:30 | XR_ITS ---
Examination: Retroperitoneal ultrasound, complete Technique: Multiple high resolution grayscale images of the retroperitoneum obtained, including kidneys and bladder. Exam date and time:September 30, 2024 1407 hours INDICATIONS: History flank pain and stent placement post removal of right stent 2 months FINDINGS: Right kidney 10.9 cm cortex 1.2 cm Moderate to advanced right hydronephrosis Left kidney 11.8 cm cortex 2.1 cm Mild bilateral renal parenchymal scar formation No bladder mass, bladder prevoid volume 94 cc No prostatomegaly no prostate nodules IMPRESSION: Moderate to advanced right hydronephrosis
== END | disposition home or self-care (01) ==
LOC: CDIM 13:50
PROVIDERS: Referring Provider Urology; Visit Provider Urology
DX: N13.30 Unspecified hydronephrosis (principal)
CPT/HCPCS: 76770

== ENCOUNTER → 2024-10-10 | Outpatient (CLI) | payer MEDICARE, SELFPAY ==
[2024-10-10 13:06] LABS: Alanine Aminotransferase 16 U/L (10-49); Albumin, Serum 4.7 gm/dL (3.4-4.8); Albumin/Globulin Ratio 1.7 (1.2-2.2); Alkaline Phosphatase 91 U/L (46-116); Anion Gap 5 (7-16); Aspartate Amino Transferase 26 U/L (0-34); BUN/Creatinine Ratio 8 Ratio (12-20); Bilirubin,Total 0.6 mg/dL (0.3-1.2); Blood Urea Nitrogen 10 mg/dL (9-23); Calcium 9.2 mg/dL (8.3-10.6); Calcium (Corrected) 9.2 mg/dL (8.5-10.1); Chloride 108 mMol/L (98-107); Creatinine (Component) 1.2 mg/dL (0.6-1.3); Globulin 2.8 gm/dL (2.3-3.5); Glucose 96 mg/dL (74-106); Osmolality,Calculated 272 (275-295); Potassium 4.1 mMol/L (3.4-5.1); Sodium 137 mMol/L (136-145); Total Protein 7.5 gm/dL (5.7-8.2); eGFR > 60 See Note
== END | disposition home or self-care (01) ==
PROVIDERS: PCP Family Medicine; Referring Provider Urology; Visit Provider Urology
DX: N13.30 Unspecified hydronephrosis (principal)
CPT/HCPCS: 36415; 80053

== ENCOUNTER → 2024-10-11 | Outpatient (CLI) | payer MEDICARE, SELFPAY ==
--- NOTE | 2024-10-11 10:26 | XR_ITS ---
Examination: CT abdomen, without intravenous contrast. CT pelvis, without intravenous contrast. CT abdomen, with intravenous contrast. CT pelvis, with intravenous contrast. 2-D sagittal coronal reconstructions. Date and time of exam:October 11, 2024 1052 hours Comparison April 14, 2024 INDICATIONS: History flank pain months with mild right hydronephrosis 8mm proximal right ureteral calculus on CT stone study April 14, 2024 CTDI: vol (mGy) 20.5 DLP: (mGycm) 857 Technique: Multiple 3.0 axial images of the abdomen and pelvis without intravenous contrast, 3.0 mm slice thickness. Multiple 3.0 postcontrast images abdomen and pelvis also obtained, post intravenous injection 60 cc [id number] 2-D sagittal and coronal reconstructions. Low dose protocols were performed. One or more of the following dose reduction techniques were used; automated exposure control, adjustment of the mA and/or KV according to patient size, use of iterative reconstruction technique. Findings: No focal liver lesions Splenic calcifications Cholelithiasis No pancreatic or adrenal mass Mild to moderate right hydronephrosis secondary to multiple proximal right ureteral calculi, the largest 6 mm Aorta normal size No pericecal inflammatory change Scattered colonic diverticulosis Mild prostatomegaly No bladder mass IMPRESSION: Mild to moderate right hydronephrosis secondary to multiple proximal right ureteral calculi, the largest 6 mm
== END | disposition home or self-care (01) ==
PROVIDERS: PCP Family Medicine; Referring Provider Urology; Visit Provider Urology
DX: N13.30 Unspecified hydronephrosis (principal); N20.1 Calculus of ureter
CPT/HCPCS: 74178; A4649; Q9967

== ENCOUNTER → 2024-11-12 | Outpatient (BNVA) | payer MEDICARE, SELFPAY | END | disposition home or self-care (01) | PROVIDERS: PCP Family Medicine; Referring Provider Family Medicine; Visit Provider Urology | DX: N40.1 Benign prostatic hyperplasia with lower urinary tract symptoms (principal); N13.8 Other obstructive and reflux uropathy; N13.2 Hydronephrosis with renal and ureteral calculous obstruction; Z87.442 Personal history of urinary calculi; I25.10 Atherosclerotic heart disease of native coronary artery without angina pectoris; I25.2 Old myocardial infarction; F17.210 Nicotine dependence, cigarettes, uncomplicated; I10 Essential (primary) hypertension; E78.00 Pure hypercholesterolemia, unspecified | CPT/HCPCS: 81003; 99212; G0463 ==

== ENCOUNTER 2024-11-27 06:20 | Day surgery (SDC) | payer MEDICARE, SELFPAY ==
[2024-11-26 12:12] VITALS: BMI 24.5
--- NOTE | 2024-11-26 12:23 | SUR.PREOP ---
Pt had this procedure done last June, pt has history of CA and x2 coronary stents 6 yrs ago, Pt stated he move to [place] from [facility] 2 yrs ago and has not establish cardiology at the [place] yet.
[2024-11-26 14:09] LABS: Alanine Aminotransferase 19 U/L (10-49); Albumin, Serum 4.6 gm/dL (3.4-4.8); Albumin/Globulin Ratio 1.7 (1.2-2.2); Alkaline Phosphatase 88 U/L (46-116); Anion Gap 4 (7-16); Aspartate Amino Transferase 25 U/L (0-34); BUN/Creatinine Ratio 9 Ratio (12-20); Bilirubin,Total 0.8 mg/dL (0.3-1.2); Blood Urea Nitrogen 16 mg/dL (9-23); Calcium 9.1 mg/dL (8.3-10.6); Calcium (Corrected) 9.1 mg/dL (8.5-10.1); Carbon Dioxide 25.6 mMol/L (20.0-31.0); Chloride 111 mMol/L (98-107); Creatinine (Component) 1.8 mg/dL (0.6-1.3); Estimated Creatinine Clearance 38.0 mL/min (>60); Globulin 2.7 gm/dL (2.3-3.5); Glucose 96 mg/dL (74-106); Osmolality,Calculated 282 (275-295); Potassium 4.5 mMol/L (3.4-5.1); Sodium 141 mMol/L (136-145); Total Protein 7.3 gm/dL (5.7-8.2); eGFR 40 See Note
--- NOTE | 2024-11-26 14:51 | SUR.PREOP ---
Pt notified to come in tomorrow at 0630.
[2024-11-27] VITALS (8 sets, daily range): BP systolic 107–130; BP diastolic 63–91; PULSE 56–85; RESP 12–20; TEMP 36.3–36.7; O2SAT 98–100; BMI 23.6
[2024-11-27] MEDS: RINGERS LACTATED 1000 ML 1,000 ML 20 ML IV (07:02)
[2024-11-27] MEDS: VANCOMYCIN in NS 1 GM/200 ML BAG IV (07:03)
--- NOTE | 2024-11-27 10:40 | SUR.PHASEI ---
pt arrived to PACU via gurney drowsy but arouses to voice, breathing unlabored, report from Daniel MURRIETA and Dr Morales
--- NOTE | 2024-11-27 10:43 | ESOP_ITS ---
Date of Procedure 11/27/24 Pre Op Diagnosis 8 mm stone right proximal ureter, right hydronephrosis, BPH with urinary obstruction Post Op Diagnosis Same plus impacted stone proximal ureter embedded into the tissue with high- grade obstruction Procedure Cystoscopic examination right retrograde pyelogram stone manipulation right ureteroscopy placement of safety wire laser stone fragmentation placement of right ureteral stent 5 [place] 28 cm under fluoroscopic examination Findings Impacted stone right proximal ureter 8 mm, high-grade obstruction right kidney tight right ureter Procedure Description Indication for procedure this is a 69-year-old gentleman who is known to me. This patient has a history of stone disease he had a impacted stone in the right proximal ureter had laser stone fragmentation basketing and placement of the stent. Patient has a recurrence of the symptoms with right flank pain. CAT scan with the stone protocol was done the stone is in the proximal ureter 8 mm with the hydronephrosis patient was recommended above procedure procedure and complications were discussed with the patient in great detail informed consent is obtained Patient was brought to the operating room in a satisfactory condition after appropriate premedication was put on the operating table in a supine position he was appropriately identified by surgeon and operating room staff site scope and indication of the procedure were reconfirmed with the patient informed consent is obtained next general anesthesia was given uneventfully patient was positioned in a dorsal lithotomy position parts were prepped and draped in the usual sterile fashion at this time patient received perioperative antibiotics 20 mg of Lasix was given IV for prevention of pyelocalyceal reflux complications and for diuresis. Next 2% lidocaine was instilled into the urethra. 21 cystoscope was used to do the cystourethroscopy examination of urethra was without any stricture prostatic urethra revealed bilobar prostatic hypertrophy inside of the bladder and all the quadrant was carried out he had course of bladder trabeculation. Left ureter was effluxing clear urine there was no urine coming out of the right ureteral orifice. Next I passed a open-ended Pollick catheter into the right ureteral orifice advanced it retrograde pyelogram was performed there was no contrast going beyond the stone into the right kidney. I advanced the open-ended Pollick catheter and through the open-ended Pollick catheter I try to pass a safety wire under fluoroscopic examination. The safety wire will not go beyond the stone it was curling back. I advanced the open- ended Pollick catheter almost up to the stone still the safety wire will not go beyond the stone. At this time I took a Glidewire manipulated the stone and I was able to bypassed the stone the wire was in the upper pole calyx. At this time I advanced the open and in the Pollick catheter I was unable to advance it beyond the stone. Retrograde pyelogram was performed there was some contrast going into the upper ureter but not into the collecting system. I remove the Glidewire and I was able to pass the safety wire into the upper pole calyx. Cystoscope was withdrawn gently I took a semirigid ureteroscope under fluoroscopic examination I was able to just pass it close to the stone stone was embedded in the tissue with the 200 laser micron I was able to fragment part of the stone with the laser to make a space for placement of the stent. It was not possible to laser the whole stone at this time as the ureter was tight and also stone was embedded into the tissue next I removed the ureteroscope and passed the cystoscope into the bladder and over the safety wire I was able to place 5 [place] 28 cm long double-J stent proximal and curled in the upper pole calyx and distal in the bladder bladder was emptied patient after having tolerated the procedure well was sent to recovery room in a satisfactory condition. Patient disposition patient will be seen in the clinic and he will be scheduled for second stage in 1 month time hopefully by that time his ureter will be passively dilated and will make it easier to pass the instrument for laser stone fragmentation Anesthesia GETA Pathology / specimen None Estimated Blood Loss 1 Condition Stable Disposition PACU Surgeon Wilma Bone MD Surgical Staff Operation Date: 11/27/24 08:45 Case Staff Anesthesiologist: Shabbir Morales
--- NOTE | 2024-11-27 10:55 | SUR.PHASEI ---
pt able to tolerate oral fluids without difficulty swallowing or n/v
--- NOTE | 2024-11-27 11:30 | XR_ITS ---
Examination: Right retrograde pyelogram with without KUB Fluoroscopy 14 spot fluoroscopic films of the abdomen November 27, 2024 0926 hours INDICATIONS: History right flank pain right hydronephrosis 8mm proximal right ureteral calculus on CT stone study April 14, 2024, laser lithotripsy with stent replacement today TECHNIQUE AND FINDINGS: 14 spot abdomen fluoroscopic films Contrast limited but present in dilated right ureter Right ureteral stent satisfactory position Fluoroscopy 1 minute 11 seconds radiation dose 13.35 milligray 14 spot fluoroscopic films IMPRESSION: Right retrograde pyelogram as above
--- NOTE | 2024-11-27 11:55 | SUR.PHASEII ---
pt awake, alert, able to follow commands, breathing unlabored, pt able to dress self and ambulate to wheelchair, pt able to tolerate oral fluids without difficulty swallowing or n/v, discharge instructions given with friend Oscar present, pt and friend both verbalize understanding of discharge instructions, pt discharged via wheelchair with all belongings and copies of discharge paperwork
== END 2024-11-27 11:55 | disposition home or self-care (01) ==
PROVIDERS: Anesthesiology; Referring Provider Urology; Visit Provider Urology
PROC: 0TJB8ZZ Inspection of Bladder, Via Natural or Artificial Opening Endoscopic (ICD-10-PCS; CPT 52000; principal; 2024-11-27 08:30)
DX: N13.2 Hydronephrosis with renal and ureteral calculous obstruction (principal); N13.8 Other obstructive and reflux uropathy; N40.1 Benign prostatic hyperplasia with lower urinary tract symptoms
CPT/HCPCS: 52356; 36415; 74420; 80053; A4217; A4649; C1769; C1876; C1889; C1894; J0131; J1100; J1580; J1885; J1938; J2250; J2371; J2405; J2704; J3010; J3370; J3490; J7120; A9270

== ENCOUNTER 2025-01-23 12:10 | Day surgery (SDC) | payer MEDICARE, SELFPAY ==
[2025-01-21 08:05] VITALS: BMI 24.5
[2025-01-21 09:22] LABS: Alanine Aminotransferase 24 U/L (10-49); Albumin, Serum 4.8 gm/dL (3.4-4.8); Albumin/Globulin Ratio 1.8 (1.2-2.2); Alkaline Phosphatase 87 U/L (46-116); Anion Gap 9 (7-16); Aspartate Amino Transferase 30 U/L (0-34); BUN/Creatinine Ratio 10 Ratio (12-20); Bilirubin,Total 1.1 mg/dL (0.3-1.2); Blood Urea Nitrogen 18 mg/dL (9-23); Calcium 10.0 mg/dL (8.3-10.6); Calcium (Corrected) 10.0 mg/dL (8.5-10.1); Carbon Dioxide 24.3 mMol/L (20.0-31.0); Chloride 107 mMol/L (98-107); Creatinine (Component) 1.8 mg/dL (0.6-1.3); Estimated Creatinine Clearance 38.0 mL/min (>60); Globulin 2.7 gm/dL (2.3-3.5); Glucose 93 mg/dL (74-106); Osmolality,Calculated 281 (275-295); Potassium 4.4 mMol/L (3.4-5.1); Sodium 140 mMol/L (136-145); Total Protein 7.5 gm/dL (5.7-8.2); eGFR 40 See Note
--- NOTE | 2025-01-22 15:11 | SUR.PREOP ---
Cardiac history reviewed with Dr Aguirre. Pt still waiting for cardiology referral at [facility].
[2025-01-23] VITALS (7 sets, daily range): BP systolic 88–129; BP diastolic 55–81; PULSE 64–72; RESP 14–20; TEMP 36.4–37.1; O2SAT 95–100; BMI 24.0
[2025-01-23] MEDS: VANCOMYCIN/WATER 1GM IVPB 200 ML IV (13:04)
--- NOTE | 2025-01-23 14:15 | XR_ITS ---
Examination: Retrograde pyelogram right with without KUB Fluoroscopy 12 spot fluoroscopic films of the abdomen Date and time: January 15, 2025, 1651 hours INDICATIONS: History right hydronephrosis multiple proximal right ureteral calculi on CT stone study October 10, 2024, ureter with some limitation stent placement today TECHNIQUE AND FINDINGS: 12 spot fluoroscopic films of the abdomen demonstrate mildly dilated right renal calyces and pelvis Right ureteral stent satisfactory position Fluoroscopy 1 minute 20 seconds radiation dose 14.157 milligray IMPRESSION: Retrograde pyelogram as above
--- NOTE | 2025-01-23 17:22 | SUR.PHASEI ---
1702 To PACU eyes closed resting comfortably, no complaints no s/s of distress noted continue to monitor pt vital signs and status.
--- NOTE | 2025-01-23 17:49 | SUR.PHASEI ---
1750 Awake and alert no s/s of distress noted, no complaints, vitals stable, sitting up using the urinal .
--- NOTE | 2025-01-23 18:11 | SUR.PHASEII ---
1800 Tolerating clear liquids up to the bathroom voided 400 ml pink colored urine, no complaints, no s/s of distress noted. 1814 Discharge home with with all belongings with friend in stable condition.
--- NOTE | 2025-01-23 19:56 | ESOP_ITS ---
RE: ROBERTO CARLOS EATON : 1955 DATE OF CONSULTATION: 01/23/2025 PREPROCEDURE DIAGNOSES: 8 x 10 mm impacted proximal ureteral stone right, status post placement of ureteral stent for renal decompression, right. POSTPROCEDURE DIAGNOSES: Status post ureteroscopic surgery with stone repositioning, stone fragmentation, and placement of ureteral stent. PROCEDURE PERFORMED: Fluoroscopic imaging of upper urinary tract; cystoscopy; retrograde pyelogram under fluoroscopic control; ureteroscopic placement of safety and working wires; semi-rigid ureteroscopy with dislodgement of tightly impacted proximal ureteral stone; partial fragmentation of proximal ureteral stone; placement of indwelling ureteral stent, right. SURGEON: Rolo Ramos MD TOOLING INSPECTOR SURGEON: Dr. Wilma Bone. ANESTHESIA: General INDICATIONS: This patient is a 69-year-old gentleman with a recurrent stone former. The patient recently was symptomatic with an 8 x 10 mm stone tightly impacted in the proximal right ureter with high-grade hydronephrosis. An attempt was made to drain the kidney with an indwelling ureteral stent. This was technically very difficult due to the degree of stone impaction, but a 5-[place] stent eventually could be placed. The patient at this point is referred for treatment of this complex proximal ureteral stone. We discussed with the patient the indication for treatment along with risks, benefits, and alternatives of the endoscopic approach and appropriate consent was obtained. DESCRIPTION OF FINDINGS: Fluoroscopically, stent is seen in the correct position overlying the right upper urinary tract alongside extending the proximal ureter. A faint stone shadow is identified. Endoscopically urethra is unremarkable. Prostate is mildly enlarged. Bladder mucosa is unremarkable. Stent is protruding from the right ureteral orifice. Retrograde pyelogram under fluoroscopic control shows contrast going up to the level of the stone, but minimal contrast above that level is noted despite the presence of the ureteral stent. Endoscopically, the stone can be bypassed with a hydrophilic tipped wire. Second wire is placed as well, but flexible scope cannot be advanced between the two wires due to the tightness of the ureter at the stone site. Therefore, a semi-rigid ureteroscope was utilized. This can dislodge the stone from the stone, but it is partially broken in the proximal ureter but then washed up into the kidney, attempt to reach the stone then with a flexible scope at this point is not possible due to the tightness of the urethra at the stone bed. Therefore, an indwelling ureteral stent was placed to allow for further passive dilation of the ureter now that the stone has been removed from the stone bed. DESCRIPTION OF PROCEDURE: Prior to initiation of anesthesia, the patient is appropriately identified by the surgeon and operating room personnel. Indications for surgery and followup of surgery are reconfirmed with the patient. The patient received preoperative antibiotics intravenously. After induction of general anesthesia, the patient was positioned on the endoscopy table in lithotomy position. The area was prepped and draped in the sterile fashion. Cystoscopy was performed using a 21-Gu[place] cystoscope. This shows the following findings. A 5- [place] angiographic catheter was introduced into the ureter alongside to the stent. A hydrophilic tipped wire is utilized to bypass the stone and can be advanced into the kidney. At this point, the patient received 20 mg of Lasix intravenously to induce diuresis and reduce the risk of pyelovenous reflux and infectious complications. The stent was then removed and checked for completeness. A flexible digital ureteroscope was advanced into the ureter alongside the safety wire because of the ureter up to the proximal ureter traversed under endoscopic control. Below the level of the stone, contrast is again injected, which again does not show any significant contrast going by the stone bed. Under direct vision, a second wire is placed eventually bypassing the stone up into the kidney, then an attempt is made to advance the scope between the two wires. The ureter at this level is very tight due to the presence of the stone and the flexible scope cannot be negotiated to the level of the stone. Therefore, a semi-rigid ureteroscope was utilized. With this instrument between the two wires, the instrument can be advanced, identifying the stone and the stone can actually be pushed out of the very tight stone bed. With the stone in direct view, stone fragmentation is started and the stone can actually be partially fragmented, but then is washed up into the kidney and therefore the flexible ureteroscope was again utilized at this point in the hopes that now that the semi-rigid ureteroscope has been successfully advanced past the tight stone that flexed the ureteroscope likewise would make its way into the kidney; however, this is still not possible. A super stiff wire was utilized in order to create more forceful forward thrust for the flexible scope, but likewise, the ureter is too tight and the risk of disrupting the ureter is recognized as an unacceptable danger. Therefore, the treatment at this point is terminated. Contrast is again injected, which at this point shows a dilated ureter above the stone bed with a moderately dilated renal connecting system. The cystoscope was again utilized to help with the passage of a 6-[place] 28 cm ureteral stent. This stent now can be easily passed bypassing the old stone bed and into the kidney. It is positioned correctly under fluoroscopic as well as endoscopic control. Bladder is emptied. The patient is awakened and returned to recovery where he arrived in satisfactory condition. ESTIMATED BLOOD LOSS: Minimal. COMPLICATIONS: None. SPECIMENS: None obtained. DISPOSITION: The patient will be discharged home from the outpatient surgical area. We will plan to bring the patient back in about 4+ weeks. At that time, we expect that the presence of the larger stent and the absence of the stone and the stone bed will allow access to the kidney to complete the stone fragmentation and active stone removal. DT: 17:24:50 TT: 18:40:00 Ref: [id number] - TID: [id number] [facility]
== END 2025-01-23 18:14 | disposition home or self-care (01) ==
PROVIDERS: Anesthesiology; Specialist; PCP Family Medicine; Referring Provider Urology; Visit Provider Urology
PROC: 0TJB8ZZ Inspection of Bladder, Via Natural or Artificial Opening Endoscopic (ICD-10-PCS; CPT 52000; principal; 2025-01-23 14:15)
DX: N13.2 Hydronephrosis with renal and ureteral calculous obstruction (principal); I25.10 Atherosclerotic heart disease of native coronary artery without angina pectoris
CPT/HCPCS: 52352; 52332; 36415; 74420; 80053; A4217; A4314; A4649; C1758; C1769; C1889; C1894; C2617; J1100; J1580; J1938; J2405; J2704; J3010; J3375; J3490; A9270; J1805

== ENCOUNTER → 2025-04-04 | Outpatient (CLI) | payer MEDICARE, OTHER, SELFPAY ==
--- NOTE | 2025-04-04 10:29 | XR_ITS ---
Examination: Abdomen sonogram, complete Date and time of exam: 04/04/2025, 10:37 a.m. INDICATION: Right lower quadrant pain for 2 weeks. History of right ureteral stent 01/20 and kidney stones. COMPARISON: CT abdomen and pelvis 10/11/2024, retrograde pyelogram 03/13/2025, renal ultrasound 09/30/2024 Technique: Multiple real-time grayscale transabdominal sonographic images of the abdomen have been obtained. Findings: The visualized portions of the pancreas are echogenic with otherwise no abnormal main ductal dilatation, focal mass or regional fluid collection. The liver is measured at 16.7 cm in length. It demonstrates heterogeneously increased echotexture with evidence for focal mass. Hepatic contours appear smooth. Color Doppler demonstrates patency of the main portal vein with normal hepatopetal flow. Color Doppler also shows flow in the hepatic veins and IVC. The gallbladder is filled with multiple echogenic shadowing calcified gallstones as seen on prior CT. No significant gallbladder wall thickening. No pericholecystic fluid. No reported positive Ramírez's sign. Splenic size is within normal limits. Numerous echogenic foci consistent with calcified granulomas are reidentified throughout the splenic parenchyma. A stent is visualized in the right kidney. There is no evidence for right-sided or left-sided hydronephrosis. No apparent calculi in the renal collecting systems. There is thinning/scarring of the right renal parenchyma. The bilateral renal parenchyma demonstrate increased echotexture. No focal mass detected. No abnormal perinephric fluid collections. The visualized portions of the abdominal aorta and inferior vena cava are normal in appearance with no abdominal aortic aneurysm appreciated. No mass, ascites or other significant finding is identified. IMPRESSION: A stent is present in the right renal collecting system without hydronephrosis. No left-sided hydronephrosis. No apparent calculi in the renal collecting systems. Right renal parenchymal thinning/scarring noted. Both kidneys demonstrate increased echotexture suggestive of medical renal disease. Diffusely echogenic liver parenchyma is nonspecific. While the finding could represent hepatic steatosis, other differential diagnostic considerations include chronic hepatitis, fibrosis and potentially even hemachromatosis in the appropriate clinical settings. Cholelithiasis without evidence for acute cholecystitis, choledocholithiasis or biliary ductal obstruction. No evidence for splenomegaly or ascites.
== END | disposition home or self-care (01) ==
PROVIDERS: PCP Family Medicine; Referring Provider Urology; Visit Provider Urology
DX: N28.89 Other specified disorders of kidney and ureter (principal); K80.20 Calculus of gallbladder without cholecystitis without obstruction
CPT/HCPCS: 76700

== ENCOUNTER → 2025-04-07 | Outpatient (BNVA) | payer MEDICARE, OTHER, SELFPAY | END | disposition home or self-care (01) | PROVIDERS: PCP Family Medicine; Referring Provider Family Medicine; Visit Provider Urology | DX: N32.89 Other specified disorders of bladder (principal); Z96.0 Presence of urogenital implants; N40.1 Benign prostatic hyperplasia with lower urinary tract symptoms; N13.8 Other obstructive and reflux uropathy; Z87.442 Personal history of urinary calculi; I10 Essential (primary) hypertension; Z87.891 Personal history of nicotine dependence | CPT/HCPCS: 52310; 81003; 96372; A4217; A4649; C1894; J1580; A9270 ==

== ENCOUNTER → 2025-05-16 | Outpatient (CLI) | payer OTHER, SELFPAY ==
--- NOTE | 2025-05-16 13:00 | XR_ITS ---
Examination: Retroperitoneal ultrasound, complete Technique: Multiple high resolution grayscale images of the retroperitoneum obtained, including kidneys and bladder. Exam date and time: May 16, 2025, 1245 hours INDICATIONS: History kidney stone and stent placement post removal right ureteral stent April 07, 2025 FINDINGS: Right kidney 10.9 cm renal cortex 1.0 cm Advanced right hydronephrosis Left kidney 11.0 cm cortex 1.8 cm No hydronephrosis Contracted urinary bladder Prostate volume 33 cc no prostate nodules IMPRESSION: Significant right hydronephrosis
== END | disposition home or self-care (01) ==
PROVIDERS: PCP Family Medicine; Referring Provider Urology; Visit Provider Urology
DX: N13.30 Unspecified hydronephrosis (principal)
CPT/HCPCS: 76770